=== PATIENT | female | born 1955 | race African-American/Black ===

== ENCOUNTER 2019-02-20 07:58 | Day surgery (SDC) | payer OTHER ==
[~2019-02-20] VITALS: Ht 171.4 cm; Wt 111.2 kg
[~2019-02-20 07:58] MED LIST: AMLO10TA PO; ASPI1CHW2 PO; ENAL10TA2 PO; HYDR12.55 PO; IRON27TA2 PO; K-TA10TA2 PO; LISI10TA4 PO; VITA400T15 PO
[2019-02-20] MEDS ORDERED: ACETAMINOPHEN 1000MG 100ML IV BTL (OFIRMEV) (J0131 PER 10MG) As Ordered ONE (08:14)
[2019-02-20] MEDS ORDERED: PROPOFOL 200 MG/20 ML VIAL As Ordered ONE (08:14)
[2019-02-20] MEDS ORDERED: dexameTHASONE 4 MG/ML 1ML VIAL (J1100) As Ordered ONE (08:14)
[2019-02-20] MEDS ORDERED: ONDANSETRON 4MG/2ML VIAL (J2405) As Ordered ONE (08:14)
[2019-02-20] MEDS ORDERED: METOCLOPRAMIDE INJ 10MG/2ML VIAL (J2765) As Ordered ONE (08:14)
[2019-02-20] MEDS ORDERED: KETOROLAC 60 MG/2 ML VIAL (J1885) As Ordered ONE (08:14)
[2019-02-20] MEDS ORDERED: LIDOCAINE 2% INJ 100 MG/5 ML SDV (FOR ANES.) As Ordered ONE (08:14)
[2019-02-20] MEDS ORDERED: fentaNYL 100 MCG/2 ML INJECTION (J3010) As Ordered ONE (08:15)
[2019-02-20] MEDS ORDERED: MIDAZOLAM INJ 2 MG/2 ML VIAL (J2250) As Ordered ONE (08:15)
[2019-02-20 08:35] LABS: HEMOGLOBIN 12.3 g/dl (12.0-15.5)
[2019-02-20] MEDS ORDERED: LR 1,000 ML IV ONE (08:45)
[2019-02-20] MEDS ORDERED: fentaNYL 100 MCG/2 ML INJECTION (J3010) IV PRN (12:15)
[2019-02-20] MEDS ORDERED: PERCOCET 5MG/325MG TAB PO PRN (12:15)
[2019-02-20] MEDS ORDERED: ONDANSETRON 4MG/2ML VIAL (J2405) IV PRN (12:15)
[2019-02-20] MEDS ORDERED: LR 1,000 ML IV SCH (12:15)
[2019-02-20 14:00] VITALS: BP 142/72
--- NOTE | 2019-02-21 12:51 | RO ---
DATE OF PROCEDURE: 02/20/2019 INDICATIONS FOR OPERATION: Leydi is a 63-year-old G5, P 2-1-2-3 who had an episode of postmenopausal bleeding back in June 2017, at which point I performed an endometrial biopsy, which was normal. I advised her at that time that if she had any future bleeding episodes she needed to present again immediately and she did so. She presented to her primary care clinic where another endometrial biopsy was performed and that biopsy showed evidence of polyps with inflammation and necrosis and there was inability to rule out neoplasia, so I discussed the finding with Leydi and recommended that she have hysteroscopy and D and C for further tissue sampling for definitive diagnosis, which she is amendable to. PREOPERATIVE DIAGNOSIS: Postmenopausal bleeding, endometrial biopsy showing polyps with features concerning for neoplasia. POSTPROCEDURE DIAGNOSIS: Postmenopausal bleeding, endometrial biopsy showing polyps with features concerning for neoplasia. SURGEON: Na Peoples MD [employer]ARNESS ASSEMBLER: ANESTHESIA: MATERIALS FORWARDED TO LAB: Endometrial curettings. DESCRIPTION OF FINDINGS: Uterus sounded to 8 cm. Hysteroscopy revealed fairly normal appearing the intrauterine cavity, it looked fairly atrophic with the exception of the upper left area of the cornua, but there were no overt masses within the uterus. INFECTION CLASSIFICATION: II. ESTIMATED BLOOD LOSS: 10 mL. Urine output was not measured. She received 1 liter of lactated Ringer for IV fluids OPERATION PERFORMED: Diagnostic hysteroscopy with dilation and curettage. DESCRIPTION OF OPERATION: After obtaining informed consent, Leydi was taken to the operating room where she underwent general anesthesia with LMA. She was placed in low lithotomy position and the perineum and vagina were prepped and draped in sterile fashion. Speculum was inserted into the vagina and the anterior segment of the cervix was grasped with a single-tooth tenaculum. Cervix was sequentially dilated using Hanks dilators. Uterus sounded to 8 cm. Hysteroscopic camera was introduced to the fundus where no overt masses were noted. Overall, it was fairly atrophic in appearance, white in color, but there was an area that looked somewhat like normal legal secretary endometrium in the upper left cornea. The hysteroscopic camera was removed, and then curette was inserted to scrape the endometrial lining. I made sure to get good sampling of that area that looks more secretory than the other aspects of the uterus. Good cry was noted 360 degrees. At that point, the tenaculum was removed. Hemostasis was noted at the tenaculum sites. The speculum was removed, and the patient was transferred to the recovery room in good condition. All counts were correct times two.
== END 2019-02-20 14:15 | disposition home or self-care (01) ==
LOC: M SDC 07:58
PROVIDERS: ATTEND Obstetrics & Gynecology
DX: N85.01 Benign endometrial hyperplasia (principal); N84.0 Polyp of corpus uteri; I10 Essential (primary) hypertension; D64.9 Anemia, unspecified; G43.909 Migraine, unspecified, not intractable, without status migrainosus; Z79.82 Long term (current) use of aspirin; Z79.899 Other long term (current) drug therapy
CPT/HCPCS: 36415; 58558; 85014; 85018; 86850; 86900; 86901; 88305; J0131; J1100; J1885; J2250; J2405; J2765; J3010

== ENCOUNTER → 2019-03-06 | Outpatient (REF) ==
[2019-03-06 11:20] LABS: RUBELLA IgG QUALITATIVE IMMUNE (IMMUNE)
== END ==
LOC: M LAB 10:11
PROVIDERS: ATTEND Nurse Practitioner Adult Health
DX: Z02.9 Encounter for administrative examinations, unspecified (principal)